=== PATIENT | male | born 1965 | race Two or more races ===

== ENCOUNTER 2025-02-16 23:04 | Emergency (ER) | payer OTHER, SELFPAY ==
[2025-02-16 23:08] VITALS: BP 115/89
[2025-02-16 23:30] LABS: Urine Character Cloudy (Clear)
[2025-02-16 23:40] LABS: Urine Squamous Cell None seen /LPF (Few)
[2025-02-16 23:43] LABS: Urine Red Blood Cell 40-50 /HPF (0-2); Urine White Cell 40-50 /HPF (0-5)
[2025-02-17] MEDS: LEVAQUIN 500 MG PO (01:22)
--- NOTE | 2025-02-17 01:24 | ED.GENMED ---
History of Present Illness
General
Chief Complaint: Male Genito-Urinary Symptoms
Source: patient and spouse
Exam Limitations: none
Time Seen by Provider: 02/17/25 00:40
Nursing documentation reviewed up to this point in time: agreed with
History of Present Illness
History of Present Illness:
Note:
CHIEF COMPLAINT(S)
Dysuria and urinary urgency.
HISTORY OF PRESENT ILLNESS
The patient is a 60-year-old male with a past medical history significant for hypertension, presenting with urinary symptoms. Specifically, he reports experiencing pain and urinary frequency beginning approximately four hours prior to the encounter.
He describes the sensation as similar to three previous episodes of prostatitis, the last of which occurred eight years ago. He denied current fever. Previously, he was evaluated for prostatitis with an extensive workup that revealed no
abnormalities, as corroborated by examinations conducted by Dr. Zaidi. The patient initially received a prescription for levofloxacin, which he did not use as it over the years.
TEMPORAL RELATIONSHIP
Symptoms commenced approximately four hours ago and present similarly to prior episodes, excluding an initial episode that featured severe rigors and high fever.
PAST MEDICAL AND SURGICAL HISTORY
Patient has a history of prostatitis, with an extensive workup conducted eight years ago revealing no anatomical conditions or post-voidal residuals.
CHRONIC MEDICAL CONDITIONS SIGNIFICANTLY AFFECTING CARE
Hypertension.
MEDICATIONS
None currently listed, as patient did not take previously prescribed levofloxacin.
REVIEW OF SYSTEMS
- Genitourinary: Reports urgency and dysuria. Denies fever or sensation of incomplete bladder emptying.
PHYSICAL EXAM
General: Alert, no acute distress. Afebrile.
Genitourinary: No tenderness for ten minutes duration, circumcised.
PROBLEM LIST
Acute:
- Dysuria
- Urinary urgency
Chronic:
- Hypertension
PLAN
Perform a bladder scan following urination. Review previous microscopy results and antibiotic sensitivities, specifically noting Escherichia coli susceptibility. Prescribe an appropriate antibiotic based on sensitivities, starting with a dose to be
administered immediately during the encounter. Recommend follow-up with Dr. Zaidi.
DIFFERENTIAL DIAGNOSIS
The Differential Diagnosis includes, in no particular order and is not limited to:
- Urinary Tract Infection
- Prostatitis
- Bladder Outlet Obstruction
- Interstitial Cystitis
- Benign Prostatic Hyperplasia
- Urethritis
- Pyelonephritis
- Urolithiasis
- Non-infectious Etiology (such as irritation or allergic reaction)
- Sexually Transmitted Infection
CARE-UPDATE
02/17/25 - 02:18
The patient was administered an initial dose of Levofloxacin in the ED for the diagnosis of acute prostatitis. The patient will continue to be monitored for any adverse reactions. Current assessment shows no signs of urinary retention. Follow-up
with urology is planned for further evaluation and management of the condition.
Disposition:
SUMMARY OF ENCOUNTER
The patient, a 60-year-old male with a history of hypertension and past episodes of prostatitis, presented to the emergency department with dysuria and urinary urgency. The symptoms began approximately four hours before arrival and resembled
previous prostatitis episodes. Despite a past comprehensive workup revealing no anatomical abnormalities, the patient was treated empirically for prostatitis due to symptom similarity and prior urine sensitivity to levofloxacin. An initial dose of
levofloxacin was administered in the ED.
DISPOSITION
Discharge
ASSESSMENT
Acute prostatitis suspected given the presentation and history.
EMERGENCY TREATMENTS ADMINISTERED
Levofloxacin was administered for acute prostatitis.
PLAN
Perform a bladder scan post-urination to rule out retention. Review previous microscopy findings and antibiotic sensitivities and adjust if needed. Prescribed levofloxacin based on previous sensitivities. Recommend follow-up with urology for further
assessment and management.
MEDICATION RECONCILIATION
Levofloxacin administered as an initial dose in the ED for suspected acute prostatitis. Prescribed levofloxacin for continued outpatient treatment.
MEDICAL DECISION MAKING
-Complexity of Data Reviewed:
Chronic conditions affecting care: Hypertension. Differential diagnosis considered includes urinary tract infection, prostatitis, bladder outlet obstruction, interstitial cystitis, benign prostatic hyperplasia, urethritis, pyelonephritis,
urolithiasis, non-infectious etiologies, and sexually transmitted infections.
-Data:
Category 1: Tests and documents: Reviewed previous microscopy results and antibiotic sensitivities, specifically Escherichia coli susceptibility.
-Risk:
Prescription medication management with levofloxacin for suspected prostatitis. Consideration of admission/observation was made due to the presentation complexity, although the decision was to discharge with close follow-up, as the initial work-up
was reassuring, and symptoms were under control.
DIAGNOSIS
Acute prostatitis (ICD-10: N41.0)
Past History
Past History
ED Past Medical History: HTN and Hypercholesterolemia
ED Past Surgical History: Appendectomy, Orthopedic and Other (Colonoscopy)
Social History
Tobacco: Non-smoker
Personal:
Living: with family
Employment: Employed (Retired oncologist)
Phy Exam
Physical Exam
Physical Exam:
.
Course
Orders/Labs/Results
Orders:
Orders
02/16/25 23:18
Urinalysis Reflex To Culture Urgent
Date Specimen was Collected: 02/16/25
Time Specimen was Collected: 23:11
Urine Microscopic Reflex Cult Urgent
Urine Culture Urgent
TIMO Source: U
Specimen Description:
Date Specimen was Collected: 02/16/25
Time Specimen was Collected: 23:11
02/17/25 01:09
Bladder Scan- Treatment ONCE
LevoFLOXacin [Levaquin] 500 mg PO NOW STA
02/17/25 01:42
Ibuprofen [Motrin] 600 mg .ROUTE .STK-MED ONE
02/17/25 01:43
Ibuprofen [Motrin] 600 mg PO NOW STA
Abnormal Lab Results
02/16/25
23:18
Ur Occult Blood Reflex 3+ A
(Negative)
Leukocyte Esterase Rfl 3+ A
(Negative)
Urine RBC 40-50 A /HPF
(0-2)
Urine WBC (Reflex) 40-50 A /HPF
(0-5)
Urine Albumin (Reflex) 1+ A
(Neg - Trace)
Vital Signs
Initial and Last Documented VS:
Initial Vital Signs
Temp Pulse Resp BP Pulse Ox
97.5 F 87 20 115/89 99
02/16/25 23:08 02/16/25 23:08 02/16/25 23:08 02/16/25 23:08 02/16/25 23:08
Last Documented Vital Signs
Temp Pulse Resp BP Pulse Ox
97.5 F 87 20 115/89 99
02/16/25 23:08 02/16/25 23:08 02/16/25 23:08 02/16/25 23:08 02/17/25 02:03
*Pulse Oximetry
SaO2: 99
Oxygen Mode of Delivery: Room air
Patient hypoxic: no
*Critical Care Note
Total Time (30-74mins, 75-104mins- exclusive of procedures): Not Applicable
ED Attending Note
-
Portions of this chart may have been created with voice recognition software.� Occasional wrong word or��sound alike� substitutions may have occurred due to the inherent limitations of voice recognition software.
Discharge Plan
Departure
Patient Disposition: Home (Routine Discharge)
Date of Disposition: 02/17/25
Time of Disposition: 02:02
Patient with high blood pressure during this ER visit?: No
Condition: Good
Discharge Problem:
Acute prostatitis
Instructions: Bacterial prostatitis
Prescriptions:
New
levofloxacin 500 mg tablet
500 mg PO DAILY Qty: 6 0RF
No Action
hydrochlorothiazide 25 MG tablet
25 mg PO DAILY
lisinopril 40 MG tablet
40 mg PO DAILY
Referrals:
Ziggy Zaidi Jr., MD [Active, Urology] - Call in 1-3 days for appt
Interventions
Interventions:
*Risk Screen - Suicide Last Done: 02/16/25 23:13
*General Assessment Last Done: 02/17/25 02:47
*Neglect/Abuse Screening Last Done: 02/16/25 23:13
*ED- Fall Risk Assessment Last Done: 02/16/25 23:13
*Nursing Disposition Last Done: 02/17/25 02:47
ED-Male Genitourinary Assessment Last Done: 02/17/25 01:00
Discharge Date and Time
Discharge Date/Time: 02/17/25 02:48
Print Language: LAO
[2025-02-17] MEDS: MOTRIN 600 MG PO (01:43)
== END 2025-02-17 02:48 | disposition home or self-care (01) ==
LOC: EMR 23:04
PROVIDERS: Emergency Medicine; EMERGENCY PHYSICIAN Emergency Medicine; FAMILY PHYSICIAN Family Medicine
DX: N41.0 Acute prostatitis (principal); I10 Essential (primary) hypertension; E78.00 Pure hypercholesterolemia, unspecified
CPT/HCPCS: 99283; 81003; 81015; 87077; 87086